=== PATIENT | female | born 1945 | race African-American/Black ===

== ENCOUNTER 2020-06-07 07:13 | Inpatient (IN) | payer MEDICARE, BC ==
[2020-06-07 08:02] LABS: #Eosinphils 0.3 10x3/uL (0.0-0.5); #Monocytes 0.8 10x3/uL (0.0-1.1); #Neutrophils 4.2 10x3/uL (1.5-8.4); %Basophils 0.4 % (0.0-2.0); %Eosinophils 4.2 % (0.0-6.0); %Lymphocytes 21.9 % (18.0-47.0); %Monocytes 12.1 % (0.0-10.0); %Neutrophils 61.1 % (40.0-75.0); Hemoglobin 10.7 g/dL (12.0-15.5); Mean Corpuscular HGB CONC 32.2 g/dL (32.0-36.0); Mean Corpuscular Hemoglobin 28.3 pg (27.0-33.0); Mean Corpuscular Volume 87.8 fl (81.6-98.3); Mean Platelet Volume 8.6 fl (7.4-10.4); Platelet Count 320 10x3/uL (150-450); RBC Distribution Width 14.7 % (11.5-14.5); Red Blood Cell (RBC) Count 3.78 10x6/uL (3.90-5.03); White Blood Cell (WBC) Count 6.9 10x3/uL (3.5-10.5)
[2020-06-07 08:10] LABS: ALT (SGPT) 21 U/L (8-55); AST (SGOT) 16 U/L (5-34); Albumin 4.1 g/dL (3.4-4.8); Alkaline Phosphatase 77 U/L (40-110); Anion Gap 15 mmol/L (10-20); BUN (Urea Nitrogen) 18 mg/dL (9.8-20.1); Bilirubin, Total 0.7 mg/dL (0.2-1.2); CK (CPK) 142 U/L (29-168); Calc. Creatinine Clearance 0 mL/min (70-130); Calcium 9.8 mg/dL (7.8-10.44); Carbon Dioxide 29 mmol/L (23-31); Chloride 100 mmol/L (98-107); Globulin 2.9 g/dL (2.4-3.5); Glucose 129 mg/dL (83-110); Potassium 3.1 mmol/L (3.5-5.1); Sodium 141 mmol/L (136-145)
[2020-06-07 08:19] LABS: Bilirubin Neg (Negative); Blood, Urine Negative (Negative); Glucose, Urine (Dipstick) Normal (Negative); Ketone, Urine Negative (Negative); Leukocyte 25 (Negative); Nitrite Negative (Negative); Protein, Urine (Dipstick) 15 mg/dl (Neg-Trace); Urobilinogen Normal mg/dL (Less than 2)
[2020-06-07 08:22] LABS: Clarity Clear (Clear)
[2020-06-07 08:32] LABS: RBC/HPF 0-3 HPF (0-3)
[2020-06-07 08:35] LABS: Bacteria/HPF 1+ HPF (None Seen)
[2020-06-07 08:36] LABS: Mucous/LPF 1+ LPF (<2+)
[2020-06-07] MEDS ORDERED: Aspirin Chewable 81 MG TAB ONE (09:12)
[2020-06-07 09:30] LABS: INR-International Normal Ratio 1.1; PTT 28.4 sec (22.0-33.0); Prothrombin Time 11.1 sec (9.5-12.1)
[2020-06-07] MEDS ORDERED: Acetaminophen 325 MG TAB PO PRN (09:58)
[2020-06-07] MEDS ORDERED: Ondansetron PF 4 MG/2 ML Vial IVP PRN (09:58)
[2020-06-07 12:12] LABS: Troponin I Less than 0.010 ng/mL (< 0.028)
[2020-06-07] MEDS ORDERED: cefTRIAXone\\ROCEPHIN 1 GM in Sodium Chloride 0.9% 100 ML IVPB SCH (12:30)
[2020-06-07 14:32] LABS: Troponin I Less than 0.010 ng/mL (< 0.028)
[2020-06-07] MEDS ORDERED: FLU VACC QS2020-21(65YR UP)/PF 240 MCG/0.7 ML SYRINGE IM ONE (15:45)
[2020-06-07] MEDS ORDERED: HumaLOG 300 UNITS/3 ML VIAL SC SCH (16:30)
[2020-06-07] MEDS ORDERED: Valsartan 80 MG TAB PO SCH (21:00)
[2020-06-07] MEDS ORDERED: Latanoprost 0.005% Ophth Soln 2.5 ml Bottle EA EYE SCH (21:00)
[2020-06-07] MEDS ORDERED: Hydrochlorothiazide 25 MG TAB PO SCH (21:00)
[2020-06-07] MEDS ORDERED: Dextrose 5% in Water 1,000 ML IV PRN (22:00)
[2020-06-07] MEDS ORDERED: Dextrose 50% Abboject 50 ML SYRINGE IVP PRN (22:00)
[2020-06-07] MEDS: HumaLOG 300 UNITS/3 ML VIAL SC PRN (22:25)
[2020-06-08 05:28] LABS: #Eosinphils 0.2 10x3/uL (0.0-0.5); #Monocytes 0.7 10x3/uL (0.0-1.1); #Neutrophils 2.9 10x3/uL (1.5-8.4); %Basophils 0.7 % (0.0-2.0); %Eosinophils 4.3 % (0.0-6.0); %Lymphocytes 30.5 % (18.0-47.0); %Monocytes 12.3 % (0.0-10.0); %Neutrophils 51.7 % (40.0-75.0); Hemoglobin 10.4 g/dL (12.0-15.5); Mean Corpuscular HGB CONC 32.1 g/dL (32.0-36.0); Mean Corpuscular Volume 87.1 fl (81.6-98.3); Mean Platelet Volume 8.8 fl (7.4-10.4); Platelet Count 315 10x3/uL (150-450); RBC Distribution Width 14.8 % (11.5-14.5); Red Blood Cell (RBC) Count 3.72 10x6/uL (3.90-5.03); White Blood Cell (WBC) Count 5.6 10x3/uL (3.5-10.5)
[2020-06-08 05:33] LABS: ALT (SGPT) 17 U/L (8-55); AST (SGOT) 16 U/L (5-34); Albumin 3.7 g/dL (3.4-4.8); Alkaline Phosphatase 70 U/L (40-110); Anion Gap 15 mmol/L (10-20); BUN (Urea Nitrogen) 11 mg/dL (9.8-20.1); Bilirubin, Total 0.5 mg/dL (0.2-1.2); Calc. Creatinine Clearance 89 mL/min (70-130); Calcium 9.4 mg/dL (7.8-10.44); Carbon Dioxide 27 mmol/L (23-31); Chloride 101 mmol/L (98-107); Globulin 3.1 g/dL (2.4-3.5); Glucose 110 mg/dL (83-110); Potassium 3.2 mmol/L (3.5-5.1); Protein, Total 6.8 g/dL (5.8-8.1); Sodium 140 mmol/L (136-145)
[2020-06-08] MEDS ORDERED: Famotidine 20 MG TAB PO SCH (09:00)
[2020-06-08] MEDS: Amlodipine 5 MG TAB PO SCH (09:19)
[2020-06-08] MEDS: Aspirin 81 mg Enteric Coated Tablet PO SCH (09:19)
[2020-06-08] MEDS: PARoxetine 20 MG TAB PO SCH (09:19)
[2020-06-08] MEDS: Enoxaparin Sodium 40 MG/0.4 ML SYRINGE SC SCH (09:19)
[2020-06-08] MEDS: Atorvastatin Calcium 10 MG TAB PO SCH (09:19)
[2020-06-08] MEDS: HumaLOG 300 UNITS/3 ML VIAL SC PRN ×2 (12:09→16:01)
[2020-06-08] MEDS ORDERED: Potassium Chloride 20 MEQ TAB PO SCH ×2 (12:45→13:15)
[2020-06-08] MEDS ORDERED: cefTRIAXone\\ROCEPHIN 1 GM in Sodium Chloride 0.9% 100 ML IVPB SCH (13:00)
[2020-06-08 16:45] LABS: Sodium 141 mmol/L (136-145)
[2020-06-08 16:46] LABS: Anion Gap 15 mmol/L (10-20); BUN (Urea Nitrogen) 13 mg/dL (9.8-20.1); Calc. Creatinine Clearance 85 mL/min (70-130); Calcium 9.2 mg/dL (7.8-10.44); Carbon Dioxide 26 mmol/L (23-31); Chloride 103 mmol/L (98-107); Glucose 192 mg/dL (83-110); Magnesium 1.6 mg/dL (1.6-2.6); Potassium 3.4 mmol/L (3.5-5.1)
[2020-06-08] MEDS ORDERED: diphenhydrAMINE 25 MG CAP PO PRN (22:00)
[2020-06-09 06:33] VITALS: BP 147/82; TEMP 98.4
[2020-06-09 08:36] LABS: Anion Gap 12 mmol/L (10-20); BUN (Urea Nitrogen) 9 mg/dL (9.8-20.1); Calc. Creatinine Clearance 102 mL/min (70-130); Calcium 9.2 mg/dL (7.8-10.44); Carbon Dioxide 29 mmol/L (23-31); Chloride 105 mmol/L (98-107); Glucose 138 mg/dL (83-110); Magnesium 1.8 mg/dL (1.6-2.6); Potassium 3.7 mmol/L (3.5-5.1); Sodium 142 mmol/L (136-145)
[2020-06-09] MEDS: Aspirin 81 mg Enteric Coated Tablet PO SCH (09:28)
[2020-06-09] MEDS: Atorvastatin Calcium 10 MG TAB PO SCH (09:28)
[2020-06-09] MEDS: Enoxaparin Sodium 40 MG/0.4 ML SYRINGE SC SCH (09:28)
[2020-06-09] MEDS: PARoxetine 20 MG TAB PO SCH (09:28)
[2020-06-09] MEDS: Amlodipine 5 MG TAB PO SCH (09:28)
[2020-06-09 10:14] VITALS: BMI 29.5
[2020-06-09] MEDS: HumaLOG 300 UNITS/3 ML VIAL SC PRN (11:51)
[2020-06-09 13:42] LABS: SARS-CoV-2 PCR by NAA Not Detected (NotDetected)
[2020-06-09] MEDS ORDERED: Cefuroxime Axetil 250 MG TAB PO SCH (21:00)
== END 2020-06-09 16:50 | DRG 689 ==
LOC: CSHERS 07:13 → SUATTDRO 07:13 → CSHTELE 11:35 → OBSVTOIN 06-09 08:47
PROVIDERS: ADMIT Internal Medicine; ATTEND Internal Medicine
DX: N39.0 Urinary tract infection, site not specified (principal); G93.41 Metabolic encephalopathy; E11.649 Type 2 diabetes mellitus with hypoglycemia without coma; Z79.4 Long term (current) use of insulin; E78.5 Hyperlipidemia, unspecified; F41.9 Anxiety disorder, unspecified; F32.9 Major depressive disorder, single episode, unspecified; E87.6 Hypokalemia; M54.9 Dorsalgia, unspecified; G89.29 Other chronic pain; M79.7 Fibromyalgia; I10 Essential (primary) hypertension; R41.0 Disorientation, unspecified; F03.90 Unspecified dementia, unspecified severity, without behavioral disturbance, psychotic disturbance, mood disturbance, and anxiety; Z88.6 Allergy status to analgesic agent; Z88.1 Allergy status to other antibiotic agents; Z88.5 Allergy status to narcotic agent; Z88.2 Allergy status to sulfonamides; Z20.822 Contact with and (suspected) exposure to COVID-19
CPT/HCPCS: 36415; 36416; 51701; 70450; 70551; 71275; 74174; 80048; 80053; 81003; 81015; 82550; 83605; 83735; 84484; 85025; 85610; 85730; 87040; 87086; 87635; 93005; 94760; 96372; 96374; 96376; G0378; J0696; J1650; J1815; J3490; Q0163; U0003; U0005

== ENCOUNTER 2020-06-11 12:49 | Emergency (ER) | payer MEDICARE, BC ==
[2020-06-11 13:21] LABS: Bilirubin Neg (Negative); Blood, Urine Negative (Negative); Clarity Clear (Clear); Glucose, Urine (Dipstick) Normal (Negative); Ketone, Urine 5 mg/dL (Negative); Leukocyte Negative (Negative); Nitrite Negative (Negative); Protein, Urine (Dipstick) 15 mg/dl (Neg-Trace); Urobilinogen Normal mg/dL (Less than 2)
[2020-06-11 13:31] LABS: Amphetamine Not Detected (NotDetected); Barbiturates Screen Not Detected (NotDetected); Benzodiazepine Screen Not Detected (NotDetected); Cocaine Metabolite Screen Not Detected (NotDetected); Methadone Not Detected (NotDetected); Methamphetamine Not Detected (NotDetected); Opiate Screen Not Detected (NotDetected); Oxycodone Screen Not Detected (NotDetected); Phencyclidine (PCP) Not Detected (NotDetected); THC/Cannabinoid Screen Not Detected (NotDetected); Tricyclic Screen Not Detected (NotDetected)
[2020-06-11 13:40] LABS: #Eosinphils 0.2 10x3/uL (0.0-0.5); #Neutrophils 7.2 10x3/uL (1.5-8.4); %Basophils 0.4 % (0.0-2.0); %Eosinophils 2.4 % (0.0-6.0); %Lymphocytes 16.4 % (18.0-47.0); %Monocytes 9.8 % (0.0-10.0); %Neutrophils 70.5 % (40.0-75.0); Mean Corpuscular HGB CONC 32.2 g/dL (32.0-36.0); Mean Corpuscular Hemoglobin 28.6 pg (27.0-33.0); Mean Corpuscular Volume 88.8 fl (81.6-98.3); Mean Platelet Volume 8.8 fl (7.4-10.4); Platelet Count 367 10x3/uL (150-450); RBC Distribution Width 14.8 % (11.5-14.5); White Blood Cell (WBC) Count 10.2 10x3/uL (3.5-10.5)
[2020-06-11 13:51] LABS: ALT (SGPT) 22 U/L (8-55); Albumin 4.3 g/dL (3.4-4.8); Alkaline Phosphatase 70 U/L (40-110); Anion Gap 18 mmol/L (10-20); BUN (Urea Nitrogen) 12 mg/dL (9.8-20.1); Bilirubin, Total 0.5 mg/dL (0.2-1.2); Calc. Creatinine Clearance 0 mL/min (70-130); Calcium 10.3 mg/dL (7.8-10.44); Carbon Dioxide 25 mmol/L (23-31); Chloride 99 mmol/L (98-107); Globulin 3.9 g/dL (2.4-3.5); Glucose 137 mg/dL (83-110); Potassium 4.5 mmol/L (3.5-5.1); Protein, Total 8.2 g/dL (5.8-8.1); Sodium 137 mmol/L (136-145)
[2020-06-11 14:05] LABS: AST (SGOT) 26 U/L (5-34)
== END 2020-06-11 16:21 ==
LOC: CSHERS 12:49
DX: N39.0 Urinary tract infection, site not specified (principal); F03.90 Unspecified dementia, unspecified severity, without behavioral disturbance, psychotic disturbance, mood disturbance, and anxiety; E11.9 Type 2 diabetes mellitus without complications; E78.5 Hyperlipidemia, unspecified; I10 Essential (primary) hypertension; K21.9 Gastro-esophageal reflux disease without esophagitis; Z79.82 Long term (current) use of aspirin; Z79.899 Other long term (current) drug therapy
CPT/HCPCS: 51701; 70450; 71045; 80053; 80306; 81003; 82140; 85025; 93005